=== PATIENT | female | born 1955 | race Caucasian/White ===

== ENCOUNTER 2022-03-09 21:46 | Emergency (ER) | payer MEDICARE, OTHER, SELFPAY ==
[2022-03-09 21:53] VITALS: BP 149/80; PULSE 108; RESP 16; TEMP 36.6; O2SAT 99
--- NOTE | 2022-03-09 22:47 | CTR_ITS ---
PROCEDURE INFORMATION: Exam: CT Cervical Spine Without Contrast Exam date and time: 03/09/2022 11:18 PM Age: 66 years old Clinical indication: Injury or trauma; Fall; Blunt trauma; Patient HX: Patient tripped and fell back onto concrete striking head. C/O head, neck, and back pain. ; Additional info: Fall with neck pain TECHNIQUE: Imaging protocol: Computed tomography of the cervical spine without contrast. Radiation optimization: All CT scans at this facility use at least one of these dose optimization techniques: automated exposure control; mA and/or kV adjustment per patient size (includes targeted exams where dose is matched to clinical indication); or iterative reconstruction. COMPARISON: CT head wo con* [id number] 03/09/2022 11:15 PM RADIATION DOSE METRICS: Total DLP (mGy-cm): 172.23 FINDINGS: Bones/joints: No acute fracture. Normal alignment. Discs/Spinal canal/Neural foramina: Sclerosis, joint space narrowing and bone spurring is seen within the facets of the cervical spine compatible diffuse osteoarthritic changes. There is a diffuse loss of disc height seen the cervical spine, most notably present C6-C7 compatible with degenerative disc disease. Lungs: Lung apices are normal. Soft tissues: Unremarkable. CT/CT cervical spin wo con* [id number] IMPRESSION: There are no acute osseous findings.
--- NOTE | 2022-03-09 22:47 | CTR_ITS ---
PROCEDURE INFORMATION: Exam: CT Lumbar Spine Without Contrast Exam date and time: 03/09/2022 11:23 PM Age: 66 years old Clinical indication: Injury or trauma; Fall; Blunt trauma (contusions or hematomas); Prior surgery; Patient HX: Patient tripped and fell back onto concrete striking head. C/O head, neck, and back pain. ; Additional info: Fall with back pain TECHNIQUE: Imaging protocol: Computed tomography of the lumbar spine without contrast. Radiation optimization: All CT scans at this facility use at least one of these dose optimization techniques: automated exposure control; mA and/or kV adjustment per patient size (includes targeted exams where dose is matched to clinical indication); or iterative reconstruction. COMPARISON: CT thoracic spin wo con* [id number] 03/09/2022 11:20 PM RADIATION DOSE METRICS: Total DLP (mGy-cm): 1061.25 FINDINGS: Bones/joints: Right L4 pars defect. Severe L5-S1 facet hypertrophy and degenerative change. Discs/Spinal canal/Neural foramina: Mild to moderate L4-L5 central spinal stenosis with bilateral lateral recess stenosis. Soft tissues: Unremarkable. CT/CT lumbar spine wo con* [id number] IMPRESSION: No acute spine findings.
--- NOTE | 2022-03-09 22:47 | CTR_ITS ---
PROCEDURE INFORMATION: Exam: CT Head Without Contrast Exam date and time: 03/09/2022 11:15 PM Age: 66 years old Clinical indication: Injury or trauma; Fall; Blunt trauma (contusions or hematomas); Patient HX: Patient tripped and fell back onto concrete striking head. C/O head, neck, and back pain. ; Additional info: Fall and hit back of head, no loc TECHNIQUE: Imaging protocol: Computed tomography of the head without contrast. Radiation optimization: All CT scans at this facility use at least one of these dose optimization techniques: automated exposure control; mA and/or kV adjustment per patient size (includes targeted exams where dose is matched to clinical indication); or iterative reconstruction. COMPARISON: No relevant prior studies available. RADIATION DOSE METRICS: Total DLP (mGy-cm): 972.9 FINDINGS: Brain: There is mild diffuse cerebral atrophy. Patchy areas of hypoattenuation are seen in the deep white matter of the cerebral hemispheres bilaterally compatible with deep white matter microvascular disease. Cerebral ventricles: No ventriculomegaly. Paranasal sinuses: Visualized sinuses are unremarkable. No fluid levels. Mastoid air cells: Visualized mastoid air cells are well aerated. Bones/joints: Unremarkable. No acute fracture. Soft tissues: Swelling and hematoma formation seen in the posterior parietal scalp. CT/CT head wo con* [id number] IMPRESSION: There are no acute intracranial findings.
--- NOTE | 2022-03-09 22:47 | CTR_ITS ---
PROCEDURE INFORMATION: Exam: CT Thoracic Spine Without Contrast Exam date and time: 03/09/2022 11:20 PM Age: 66 years old Clinical indication: Injury or trauma; Fall; Blunt trauma (contusions or hematomas); Prior surgery; Surgery type: Loop recorder. Mastectomy; Patient HX: Patient tripped and fell back onto concrete striking head. C/O head, neck, and back pain. ; Additional info: Fall with back pain TECHNIQUE: Imaging protocol: Computed tomography of the thoracic spine without contrast. Radiation optimization: All CT scans at this facility use at least one of these dose optimization techniques: automated exposure control; mA and/or kV adjustment per patient size (includes targeted exams where dose is matched to clinical indication); or iterative reconstruction. COMPARISON: CT cervical spin wo con* [id number] 03/09/2022 11:18 PM RADIATION DOSE METRICS: Total DLP (mGy-cm): 1118.62 FINDINGS: Bones/joints: Severe thoracic spondylosis. Severe thoracic spondylosis. Discs/Spinal canal/Neural foramina: No significant disc protrusion. No severe spinal canal stenosis. No significant neural foraminal narrowing. Soft tissues: Unremarkable. Vasculature: Calcification of the thoracic aorta and/or great vessels consistent with atherosclerotic vessel disease. Lymph nodes: Calcified right hilar nodes and/or mediastinal nodes and/or lung granulomas consistent with old granulomatous disease. Spleen: Calcified splenic granulomas. CT/CT thoracic spin wo con* [id number] IMPRESSION: No acute spine findings.
--- NOTE | 2022-03-09 22:49 | ED_ITS ---
HPI - Fall General: Chief Complaint: Fall Stated Complaint: Fell hit Head Time Seen by Provider: 03/09/22 22:32 History of Present Illness: Patient is a 66-year-old female comes to the ED after fall. Fall occurred just prior to arrival and patient's daughter is present and witnessed the fall. Patient was walking up back deck steps and was on the second step when she lost her balance. Patient has trouble chronically with walking up steps and tries to limit any stair climbing when possible. Patient lost balance and fell backwards. Her tailbone then back hit concrete. Her back of head then whipped back and hit concrete as well. Denies any loss of consciousness. Endorses having a headache and dizziness since fall. She is also feeling some left foot pain, neck and back pain after fall as well. She had some light bleeding from a hematoma of her scalp in the back of head. The bleeding was minimal and has resolved. Denies any neuro symptoms such as vision changes, numbness/tingling or weakness to 1 side of her body or face. Denies any other symptoms. Associated symptoms-after fall: Denies abdominal pain, chest pain, headache(s), hematuria or neck pain Review of Systems Const: Denies: fever(s), chills or fatigue Eyes: Denies: change in vision or eye discomfort ENMT: Denies: throat pain, odynophagia, nasal discharge or nasal congestion Card: Denies: chest pain, palpitations, edema, swelling of feet/ankles, dyspnea on exertion or orthopnea Resp: Denies: dyspnea, productive cough or non-productive cough GI: Denies: abdominal pain, nausea, vomiting, diarrhea, constipation or hematochezia : Denies: flank pain, dysuria or hematuria Musc: Denies: neck pain, back pain or extremity swelling Skin/Breast: Denies: rash or new lesions Neuro: Denies: headache(s), numbness in extremities or weakness in extremities PFS ED PFSH: Medical History (Updated 03/10/22 @ 10:21 by KALEY Hodges) No pertinent family history Surgical History (Updated 03/10/22 @ 10:21 by KALEY Hodges) No pertinent past surgical history Physical Exam Const: COMMON NORMALS: no acute distress, patient oriented x3 and alert GENERAL APPEARANCE: cooperative and comfortable HENMT: COMMON NORMALS: normocephalic HEAD & SCALP: normocephalic and hematoma right occipital Head hematoma size: 2 cm; no Masters's sign, no laceration and no raccoon eyes MOUTH: Normal oral and palatal mucosa present THROAT: posterior oropharynx normal and uvula midline Eye: COMMON NORMALS: Equal, round and reactive pupils present, EOMs intact bilaterally and conjunctivae normal CONJUNCTIVA: Yes conjunctivae normal PUPIL: Yes Equal, round and reactive pupils present Neck/C-Spine: COMMON NORMALS: supple GENERAL: Yes normal visual inspection Resp: COMMON NORMALS: normal respiratory effort, No retractions, No use of accessory muscles and clear to auscultation bilaterally AUSCULTATION: clear to auscultation bilaterally Cardio: COMMON NORMALS: regular rate, regular rhythm, S1 normal heart sound present, S2 normal heart sound present, No gallops present (Cardio), No clicks present (Cardio), No murmurs present (Cardio) and Peripheral pulses 2+ throughout RATE: regular rate RHYTHM: regular rhythm HEART SOUNDS: S1 normal heart sound present and S2 normal heart sound present PERIPHERAL PULS ES: Peripheral pulses 2+ throughout GI: COMMON NORMALS: Normal to inspection, nondistended, normoactive bowel sounds present, Soft to palpation, non-tender and no masses PALPATION: Yes Soft to palpation : COMMON NORMALS: Yes no CVA tenderness BLADDER/KIDNEY EXAM: Yes no CVA tenderness Back/Pelvis: COMMON NORMALS: no CVA tenderness LUMBAR SPINE/LOWER BACK: Yes paraspinal muscle tenderness Lumbar paraspinal muscle tenderness: bilateral Bilateral lumbar paraspinal muscle tenderness: L3, L4 and L5 Extremity: COMMON NORMALS: normal to inspection NARRATIVE EXTREMITY EXAM: Left foot tenderness over first, second third and fourth metatarsal Neuro: COMMON NORMALS: patient oriented x3, CN's II-XII intact bilaterally, moves all extremities, no focal motor deficits and no sensory deficits noted SENSORIUM/ORIENTATION: Yes alert COORDINATION/BALANCE: [id number] test normal SPEECH: speech normal GAIT: Yes Normal gait present COORDINATION: [id number] test normal Skin: GENERAL SKIN EXAM: dry skin Course Vital Signs: Vital signs: Vital Signs Temperature 97.8 F 03/09/22 21:53 Pulse Rate 108 H 03/09/22 21:53 Respiratory Rate 18 03/10/22 00:03 Blood Pressure 149/80 03/09/22 21:53 Pulse Oximetry 99 03/09/22 21:53 Oxygen Delivery Me thod 03/09/22 21:53 MDM - Fall Medical Decision Making Patient is a 66-year-old female comes to the ED after fall. Fall occurred just prior to arrival and patient's daughter is present and witnessed the fall. Patient was walking up back deck steps and was on the second step when she lost her balance. Patient has trouble chronically with walking up steps and tries to limit any stair climbing when possible. Patient lost balance and fell backwards. Her tailbone then back hit concrete. Her back of head then whipped back and hit concrete as well. Denies any loss of consciousness. Endorses having a headache and dizziness since fall. She is also feeling some left foot pain, neck and back pain after fall as well. Vitals are stable. Patient appears in no acute distress. Neuro exam showed no deficits. She has a 2 cm hematoma of occipital region of scalp. She has tenderness over metatarsals of left foot. Rest of exam is benign. CT of head, cervical spine, lumbar spine and thoracic spine all showed no acute fractures or findings. Foot x-ray showed possible fracture involving the base of second third and fourth metatarsals of unknown age. Given patient's fall with increased left foot pain we will treat metatarsal fractures as acute. Patient was put in a Ortho stiff soled shoe and I placed an order with case management for patient be referred to Dr. Antonio for follow-up. Patient diagnosed with fall injury and metatarsal fracture and was discharged home with a prescription for hydrocodone and a muscle relaxer. Told to follow-up with PCP as well within the next week for reevaluation. Return to ED precautions given. Patient understood and agreed with plan. Lab Data Radiology Impressions Cervical Spine CT 03/09/22 22:47 IMPRESSION: There are no acute osseous findings. Head CT 03/09/22 22:47 IMPRESSION: There are no acute intracranial findings. Lumbar Spine CT 03/09/22 22:47 IMPRESSION: No acute spine findings. Thoracic Spine CT 03/09/22 22:47 IMPRESSION: No acute spine findings. Foot X-Ray 03/09/22 22:51 IMPRESSION: 1. Great toe metatarsal osteotomy and/or metallic fixation for treatment of bunion deformity. 2. Possible fractures involving the bases of the 2nd, 3rd and 4th metatarsals of indeterminate age. Discharge Plan Discharge Patient Disposition: Home Clinical Impression: Fall with injury Qualifiers: Encounter type: initial encounter Qualified Code(s): W19.XXXA - Unspecified fall, initial encounter Metatarsal fracture Qualifiers: Encounter type: initial encounter Metatarsal bone: unspecified metatarsal Fracture type: closed Fracture alignment: nondisplaced Laterality: left Qualified Code(s): S92.302A - Fracture of unspecified metatarsal bone(s), left foot, initial encounter for closed fracture Condition: Stable Prescriptions: New methocarbamol 750 mg tablet 750 mg PO Q8H PRN (Reason: back muscle spasms or pain) Qty: 20 0RF Discharge Orders: Discharge ED (Routine); Ordered 03/10/22 Ordered By: Byron Carter Discharge Diet: Regular Discharge Activity: Increase activity as tolerated Patient Instructions: Fractures - Metatarsal, Opioid Safety Activity Restrictions/Additional Instructions: Follow-up with medical provider as directed. Case management should contact you next several days set up an appointment with Dr. Antonio for further evaluation of metatarsal fractures on left foot. Wear stiff soled shoe. take medications as prescribed. Return to the ER or your medical provider if condition worsens. Please read and understand discharge instructions. Thank you for choosing [facility] for your healthcare needs today. Please realize this is an emergency room and that we are providing you with a medical screening exam and this may not be complete and all inclusive of all the testing and or work up that you may need to determine your ailment or severity of your illness. It is very important that you follow up as instructed or that you return to the Emergency Department should you have concerns or if your condition changes or worsens in any way. Coding Level of Care Code ED Almond Blancher for Daria Corcoran Exam Comprehensive
--- NOTE | 2022-03-09 22:51 | XRR_ITS ---
PROCEDURE INFORMATION: Exam: XR Left Foot Exam date and time: 03/09/2022 11:37 PM Age: 66 years old Clinical indication: Injury or trauma; Blunt trauma; Left; Patient HX: Fall. C/O foot pain. ; Additional info: Foot pain after fall TECHNIQUE: Imaging protocol: Radiologic exam of the Left foot. Views: 3 or more views. COMPARISON: No relevant prior studies available. FINDINGS: Bones/joints: Great toe metatarsal osteotomy and/or metallic fixation for treatment of bunion deformity. Calcaneal spur. Possible fractures involving the bases of the 2nd, 3rd and 4th metatarsals of indeterminate age. Soft tissues: Normal. XR/XR foot LT min 3V* [id number] IMPRESSION: 1. Great toe metatarsal osteotomy and/or metallic fixation for treatment of bunion deformity. 2. Possible fractures involving the bases of the 2nd, 3rd and 4th metatarsals of indeterminate age.
[2022-03-09] MEDS: ondansetron 4 MG Tablet PO (23:30)
[2022-03-09] MEDS: HYDROcodone-acetaminophen 5-325 mg Tablet 1 TAB PO (23:31)
[2022-03-10 00:03] VITALS: RESP 18
[2022-03-10] MEDS: orphenadrine 30 mg/mL Inj 2 mL 60 MG IM (00:03)
[2022-03-10] MEDS: morphine 4 mg/mL SDV 1 mL IM (00:03)
--- NOTE | 2022-03-12 13:48 | DCPLANNER ---
Addendum entered by Brook Rubio 03/15/22 16:26: cage shift manager received the following message from the ortho clinic regarding follow up appointment: Called and left a vm/mailed a letter for patient to call in and schedule an appt with Dr. Antonio Original Note: cage shift manager had message to schedule a follow up appointment for patient with ortho. cage shift manager sent patients information to the front office staff at ortho. Patients information will be printed and reviewed. Clinic will call patient with appointment.
== END 2022-03-10 01:27 | disposition home or self-care (01) ==
PROVIDERS: Emergency Provider Physician Assistant
DX: S92.325A Nondisplaced fracture of second metatarsal bone, left foot, initial encounter for closed fracture (principal); S92.335A Nondisplaced fracture of third metatarsal bone, left foot, initial encounter for closed fracture; S92.345A Nondisplaced fracture of fourth metatarsal bone, left foot, initial encounter for closed fracture; W01.0XXA Fall on same level from slipping, tripping and stumbling without subsequent striking against object, initial encounter
CPT/HCPCS: 70450; 72125; 72128; 72131; 73630; 96372; 99285; J2270; J2360; Q0162